=== PATIENT | female | born 1945 | race Caucasian/White ===

== ENCOUNTER 2017-08-25 16:58 | Outpatient (CLI) | payer MEDICARE, OTHER | END 2017-08-25 16:59 | disposition critical access hospital (66) | LOC: EMS 16:58 | PROVIDERS: ATTEND Surgery | DX: M25.552 Pain in left hip (principal); M25.512 Pain in left shoulder; W01.198A Fall on same level from slipping, tripping and stumbling with subsequent striking against other object, initial encounter; Y93.01 Activity, walking, marching and hiking; Y92.832 Beach as the place of occurrence of the external cause | CPT/HCPCS: A0425; A0427 ==

== ENCOUNTER 2017-08-25 17:30 | Emergency (ER) | payer MEDICARE, OTHER ==
[2017-08-25] MEDS ORDERED: KETOROLAC 60 MG/2 ML VIAL IVP STA (18:10)
--- NOTE | 2017-08-25 18:13 | ED Physician Documentation ---
History of Present Illness - Stated complaint Stated Complaint: GLF - Chief complaint Chief Complaint: Ext Problem - History obtained from History obtained from: Patient, EMS - History of Present Illness Timing: Today, How many hours ago (1) Pain level max: 8 Pain level now: 6 Improved by: rest Worsened by: movement - Additonal information Additional information: fall, L hip and shoulder pain. no head injury. no [place] no vomiting Review of Systems Constitutional: denies: Fever, Chills Nose: denies: Rhinorrhea / runny nose, Congestion GI: denies: Nausea, Vomiting Skin: denies: Rash Musculoskeletal: denies: Neck pain, Back pain Neurologic: denies: Generalized weakness, Focal weakness, Numbness, Confused, Altered mental status, LOC PD PAST MEDICAL HISTORY - Past Medical History Past Medical History: Yes Endocrine/Autoimmune: HyPOthyroidism - Past Surgical History Past Surgical History: No - Present Medications Home Medications: Ambulatory Orders Medication Instructions Recorded Confirmed Citalopram Hydrobromide DAILY 08/25/17 [Citalopram HBr] Levothyroxine [Synthroid] DAILY 08/25/17 Meloxicam [Mobic] 7.5 mg PO BID PRN #20 tablet 08/25/17 diazePAM [Valium] 5 mg PO TID PRN #10 tablet 08/25/17 raNITIdine [Zantac] 08/25/17 traZODone [Desyrel] DAILY PM 08/25/17 - Allergies Allergies/Adverse Reactions: Allergies Allergy/AdvReac Type Severity Reaction Status Date / Time milk AdvReac Unknown Verified 08/25/17 17:43 Opioids - Morphine Analogues AdvReac Hallucinati Verified 08/25/17 17:43 ons Opioids-Meperidine and AdvReac Hallucinati Verified 08/25/17 17:43 Related ons Opioids-Methadone and Related AdvReac Hallucinati Verified 08/25/17 17:43 ons - Living Situation Living Arrangement: reports: At home - Social History Does the pt smoke?: No Does the pt drink ETOH?: Yes Does the pt have substance abuse?: No - Family History Family history: reports: Non contributory PD ED PE NORMAL - Vitals Vital signs reviewed: Yes - General General: Alert and oriented X 3, No acute distress, Well developed/nourished - HEENT HEENT: Atraumatic, PERRL, Ears normal, Moist mucous membranes, Pharynx benign - Neck Neck: Supple, no meningeal sign - Cardiac Cardiac: RRR, Strong equal pulses - Respiratory Respiratory: No respiratory distress, Clear bilaterally - Abdomen Abdomen: Soft, Non tender, Non distended - Back Back: No CVA TTP, No spinal TTP - Derm Derm: Warm and dry - Extremities Extremities: No deformity, No tenderness to palpate, Other (TTP over the L hip, but FROM. NVI. also ttp over the L shoulder diffusely. otherwise normal extremity exams. NVI. no bruising. ) - Neuro Neuro: Alert and oriented X 3 - Psych Psych: Normal mood, Normal affect Results - Vitals Vitals: Vital Signs - 24 hr 08/25/17 08/25/17 08/25/17 17:35 17:47 20:09 Temperature 36.5 C 36.2 C L Heart Rate 80 63 Respiratory 24 18 Rate Blood Pressure 182/89 H 142/87 H O2 Saturation 100 99 Oxygen O2 Source Room air - Rads (name of study) L shoulder xray Radiology: Prelim report reviewed, EMP read contemporaneously, See rad report ( normal) L hip xray Radiology: Prelim report reviewed, EMP read contemporaneously, See rad report ( normal) PD MEDICAL DECISION MAKING - ED course Complexity details: reviewed results, re-evaluated patient, considered differential, d/w patient ED course: Patient feels better after Toradol. Declines any muscle relaxants here but would like them for home. She is well-appearing, nontoxic. Afebrile. Ambulating well. No acute findings on x-ray. No spinal tenderness over the cervical, thoracic or lumbar spines. No neurological deficits. No evidence of head injury that would necessitate a CT. No evidence of skull fracture or intracranial hemorrhage. Patient counseled regarding signs and symptoms for which I believe and urgent re-evaluation would be necessary. Patient with good understanding of and agreement to plan and is comfortable going home at this time This document was made in part using voice recognition software. While efforts are made to proofread this document, sound alike and grammatical errors may occur. Departure - Departure Disposition: 01 Home, Self Care Clinical Impression: Contusion, hip Qualifiers: Encounter type: initial encounter Laterality: left Qualified Code(s): S70.02XA - Contusion of left hip, initial encounter Shoulder contusion Qualifiers: Encounter type: initial encounter Laterality: left Qualified Code(s): S40.012A - Contusion of left shoulder, initial encounter Condition: Good Instructions: ED Contusion Soft Tissue Follow-Up: SHERLYN BARR DO [Primary Care Provider] - Within 1 week Prescriptions: diazePAM [Valium] 5 mg PO TID PRN #10 tablet PRN Reason: Spasms Meloxicam [Mobic] 7.5 mg PO BID PRN #20 tablet PRN Reason: Pain Comments: Return if you worsen. You will be sore for the next few days. Do not drive or operate heavy machinery while taking the valium. Do not drink alcohol with this. Discharge Date/Time: 08/25/17 20:16
--- NOTE | 2017-08-25 19:03 | XRAY Preliminary Report ---
Exam: XR SHOULDER 2 VIEW LT IMPRESSION: No fracture or malalignment. [facility] SITE ID: [id number]
--- NOTE | 2017-08-25 19:13 | XRAY Report ---
EXAM: LEFT SHOULDER RADIOGRAPHY EXAM DATE: 08/25/2017 06:53 PM. CLINICAL HISTORY: Left shoulder pain status post fall. COMPARISON: None. TECHNIQUE: 2 views. FINDINGS: Bones: Normal. No fracture or bone lesion. Joints: The glenohumeral and acromioclavicular joints are normal. Soft tissues: The visualized hemithorax is unremarkable. No soft tissue swelling. IMPRESSION: No fracture or malalignment. [facility] Referring Provider Line: [phone] SITE ID: [id number]
--- NOTE | 2017-08-25 19:14 | XRAY Preliminary Report ---
Exam: XR HIP W/PELVIS 2-3V LT IMPRESSION: Normal pelvis and hip radiography. [facility] SITE ID: [id number]
[2017-08-25] MEDS ORDERED: diazePAM 5 MG TABLET PO STA (19:27)
--- NOTE | 2017-08-25 19:40 | XRAY Report ---
EXAM: LEFT HIP AND PELVIS RADIOGRAPHY EXAM DATE: 08/25/2017 06:52 PM. HISTORY: Left hip pain status post fall. COMPARISONS: None. TECHNIQUE: 1 view of the pelvis and 1 view of the hip. FINDINGS: Bones: Normal. No fracture or bone lesion. Joints: The bilateral hip, pubis symphysis, and sacroiliac joints are preserved. Soft Tissues: Normal. No soft tissue swelling. IMPRESSION: Normal pelvis and hip radiography. [facility] Referring Provider Line: [phone] SITE ID: [id number]
[2017-08-25 20:10] VITALS: BP 142/87
== END 2017-08-25 20:16 | disposition home or self-care (01) ==
LOC: ED 17:30
DX: S40.012A Contusion of left shoulder, initial encounter (principal); S70.02XA Contusion of left hip, initial encounter; W01.198A Fall on same level from slipping, tripping and stumbling with subsequent striking against other object, initial encounter; Y93.01 Activity, walking, marching and hiking; Y92.832 Beach as the place of occurrence of the external cause; E03.9 Hypothyroidism, unspecified
CPT/HCPCS: 96374; 99283; 99284